=== PATIENT | male | born 1940 | race Caucasian/White ===

== ENCOUNTER 2020-10-12 11:39 | Day surgery (SDC) | payer MEDICARE ==
[~2020-10-12] VITALS: Ht 177.8 cm; Wt 66.4 kg
[2020-10-12] VITALS (16 sets, daily range): BP systolic 77–152; BP diastolic 48–80
[2020-10-12] MEDS ORDERED: NS IV 1000 ML 1,000 ML IV STA (11:40)
[2020-10-12] MEDS ORDERED: LIDOCAINE 1% INJ 20 ML 20 ML VIAL INJ ONE (11:45)
[2020-10-12] MEDS ORDERED: fentaNYL INJ 100 MCG/2 ML AMP IVP ONE (11:45)
[2020-10-12] MEDS ORDERED: MIDAZOLAM 2 MG/2 ML (VERSED) VIAL IVP ONE (11:45)
[2020-10-12 12:25] LABS: ABSOLUTE RETIC # 36 10e9/uL (24-90); BASOPHILS % (AUTO) 0 % (0-10); EOSINOPHILS # (AUTO) 0.1 10^3/uL (0.0-0.3); EOSINOPHILS % (AUTO) 3 % (0-10); HEMATOCRIT 27 % (40-54); HEMOGLOBIN 8.4 g/dL (13.3-17.7); LYMPHOCYTES # (AUTO) 2.3 10^3/uL (1.0-4.0); LYMPHOCYTES % (AUTO) 49 % (12-44); MEAN CORPUSCULAR HEMOGLOBIN 30 pg (25-34); MEAN CORPUSCULAR HGB CONC 31 g/dL (32-36); MEAN CORPUSCULAR VOLUME 96 fL (80-99); MEAN PLATELET VOLUME 9.9 fL (9.0-12.2); MONOCYTES # (AUTO) 0.3 10^3/uL (0.0-1.0); MONOCYTES % (AUTO) 7 % (0-12); NEUTROPHILS # (AUTO) 1.9 10^3/uL (1.8-7.8); NEUTROPHILS % (AUTO) 40 % (42-75); PLATELET COUNT 107 10^3/uL (130-400); RETICULOCYTE % 1.27 % (0.50-2.40); WHITE BLOOD COUNT 4.7 10^3/uL (4.3-11.0)
[2020-10-12 12:27] LABS: INR 1.1 (0.8-1.4); PROTHROMBIN TIME PATIENT 14.8 SEC (12.2-14.7)
[2020-10-12] MEDS ORDERED: preservision (12:27)
[2020-10-12] MEDS ORDERED: TIMO5DRO27 OP (12:27)
[2020-10-12] MEDS ORDERED: CALC-794 PO (12:27)
[2020-10-12] MEDS ORDERED: IBUP-2473 PO (12:27)
[2020-10-12] MEDS ORDERED: vitamin b12 (12:27)
[2020-10-12 13:38] LABS: ANISOCYTOSIS SLIGHT; BAND NEUTROPHILS 3 %; BASOPHILS % (MANUAL) 0 %; EOSINOPHILS % (MANUAL) 2 %; LYMPHOCYTES % (MANUAL) 48 %; MONOCYTES % (MANUAL) 4 %; NEUTROPHILS % (MANUAL) 43 %
[2020-10-12 13:39] LABS: ROULEAUX MOD
[2020-10-12] MEDS ORDERED: HYDROcodone/APAP 5 MG/325 MG (LORTAB) TAB PO PRN (15:00)
[2020-10-12] MEDS ORDERED: ONDANSETRON 4 MG/2 ML (SDV) Z0FRAN IVP ONE (15:15)
--- NOTE | 2020-10-12 15:31 | Pre-Op Note & Conscious Sedat ---
Pre-Operative Progress Note H&P Reviewed The H&P was reviewed, patient examined and no changes noted. Date H&P Reviewed: Oct 12, 2020 Time H&P Reviewed: 12:00 Pre-Op Diagnosis: anemia Conscious Sedation Pre-Proced Time 12:00 ASA Score 2 For ASA 3 and 4: Consider anesthesia and medical clearance. Also, for patients with a history of failed moderate sedation consider anesthesia. Airway Lungs Heart ASA score ASA 1: a normal healthy patient ASA 2: a patient with a mild systemic disease (mid diabetes, controlled hypertension, obesity ASA 3: a patient with a severe systemic disease that limits activity (angina, COPD, prior Myocardial infarction) ASA 4: a patient with an incapacitating disease that is a constant threat to life (CHF, renal failure) ASA 5: a moribund patient not expected to survive 24 hrs. (ruptured aneurysm) ASA 6: a declared brain- patient whose organs are being harvested. For emergent operations, add the letter E after the classification Mallampati Classification Grade 2 Sedation Plan Analgesia, Amnesia, Plan communicated to team members, Discussed options with patient/fam, Discussed risks with patient/fam The patient is an appropriate candidate to undergo the planned procedure, sedation, and anesthesia. The patient immediately re-assessed prior to indication. JIMMY MCNEAL MD Oct 12, 2020 15:31
--- NOTE | 2020-10-12 19:01 | Diagnostic Imaging Report ---
INDICATION: Anemia. The patient was brought to the CT suite, placed on table in the prone position. Axial imaging through the pelvis was performed to evaluate appropriate entry site. The low back was prepped and draped in the usual sterile fashion. A small amount of 1% lidocaine was utilized for local anesthesia. Bone marrow needle was advanced and placed with its tip along the posterior cortex of the right iliac bone. The needle was advanced through the cortex utilizing bone marrow drill. Bone marrow aspirates were attempted however there was a dry tap. Therefore, a bone marrow core was obtained. Core sample was somewhat short and due to absence of aspirations, the needle was repositioned and readvanced into the right iliac bone and an additional core biopsy was obtained. The procedure was performed utilizing conscious sedation with radiology nursing and constant patient monitoring. The patient was given a total of 50 mg of fentanyl intravenously and 0.5 mg of Versed intravenously. Total procedure time was approximately 30 minutes due to delay in the lab getting the 1st core sample out of the biopsy needle. IMPRESSION: Successful CT-guided bone marrow biopsy utilizing conscious sedation. Pathology results are currently pending. Dictated by: Dictated on workstation # [id number]
--- OUTSIDE RECORDS SUMMARY | 2020-10-12 22:27 | XMS REPORT | Clinical Summary ---
Author Author Admin, Brandon Bernard Organization [facility] Address Unknown Phone Unavailable Allergies, Adverse Reactions, Alerts Allergy Name Reaction Description Start Date Severity Status Pr ovider No Known Allergies Sharri Dent LPN Conditions or Problems Problem Name Problem Code Onset Date Status Entry Date Provider Comment Standard Description Annotate BMI 21-21.9 Active Susan Mathews APRN-C Body Mass Index between 19-24, adult Fatigue 780.79 Active Susan Mathews APRN-Tung Other malaise and fatigue Heat exhaustion due to salt depletion, initial encounter 992.4 Active Susan Mathews APRN-Tung Heat exhaustion du e to salt depletion Anemia 285.9 Active Josefina Amelia Anemi a, unspecified Medication List Medication Instructions Start Date Stop Date Generic Name NDC Status Provider Patient Instruction DOXYCYCLINE HYCLATE 100 MG ORAL CAPSULE 1 cap by mouth twice daily EPC[facility] waiver in place DOXYCYCLINE HYCLATE [id number] No Longer Activ e Vero Raida Active DOXYCYCLINE HYCLATE 100 MG ORAL CAPSULE 1 cap by mouth twice daily EPCS waiver in place DOXYCYCLINE HYCLATE 100 MG ORAL CAPSULE 1 [id number] DOXYCYCLINE HYCLATE Inactive Diagnostic Results Date Name Value Unit Range Description Lab Report: CBC W/DIFF, Comp. Metabolic Panel, Ferritin, Folate, Greta ... - Chemistry sodium, serum 140 mmol/L 884-659 6755/06/25 carbon dioxide, venous blood 28.8 mmol/L 21.0-32 .0 potassium, serum 4.4 mmol/L 3.5-5.2 chloride, serum 102 mmol/L 98-107 blood glucose 106 mg/dL 65-95 urea nitrogen, blood 26 mg/dL 7-18 creatinine, serum 1.55 mg/dL 0.60-1.30 Estimated Glomerular Filtration Rate (calc) 46 (?) mL/min/1.73m2 = OR > 60 mL/min alanine aminotransferase (SGPT), serum 16 U/L 12-78 aspartate aminotransferase (SGOT), serum 23 U/L 19-43 calcium, serum 9.6 mg/dL 8.5-10.1 bilirubin, serum, total 0.10 mg/dL 0.00-1.00 TSH 3.85 m[iU]/mL 0.36-3.74 thyroxine, serum, free 1.06 ng/dL 0.59-1.17 Lab Report: CBC W/DIFF, Comp. Metabolic Panel, Ferritin, Folate, Greta ... - Hematology leukocyte count, blood 5.3 10^3/MM^3 10*3/mm3 4.6-10.2 neutrophils as percent of blood leukocytes 56.7 % 42.2-75.2 monocytes as percent of blood leukocytes 9.8 % 1.7-9.3 lymphocytes as percent of blood leukocytes 27.5 % 20.5-51.1 erythrocyte (RBC) count 3.53 10^6/MM^3 10*6/mm3 4.50-6.5 0 hemoglobin, blood 10.7 g/dL 14.0-18.0 hematocrit, blood 34.3 % 40.0-54.0 mean corpuscular volume, RBC 97 fL 80-97 mean corpuscular hemoglobin, RBC 30.2 pg 27. 0-31.2 mean corpuscular hemoglobin concentration, RBC 31.1 G/DL % 31.8-35.4 red blood cell distribution width 13.8 % 11 .6-14.8 platelet count 130 10^3/MM^3 10*3/mm3 142-424 Lab Report: CBC W/DIFF, Comp. Metabolic Panel, Ferritin, Folate, Greta ... - Lab Alkaline phosphatase 91 50-136 Encounters Code Encounter Date Provider Facility CPT-44625 Level 3 Est. Patient 12:13:01 CDT [facility] Level 3 Est. Patient 12:01:[address] [facility] Procedures Code Procedure Name Date Entry Date Standard Desc ription CPT-42596 Venipuncture Draw Fee 15:05:41 CDT
--- OUTSIDE RECORDS SUMMARY | 2020-10-12 22:27 | XMS REPORT | Clinical Summary ---
Author Author Admin, Brandon Bernard Organization [employer] Address Unknown Phone Unavailable Allergies, Adverse Reactions, Alerts Allergy Name Reaction Description Start Date Severity Status Pr ovider No Known Allergies Sharri Dent LPN Conditions or Problems Problem Name Problem Code Onset Date Status Entry Date Provider Comment Standard Description Annotate BMI 21-21.9 Active Susan Mathews APRN-Tung Body Mass Index between 19-24, adult Fatigue 780.79 Active Susan BILLS Other malaise and fatigue Heat exhaustion due to salt depletion, initial encounter 992.4 Active Susan BILLS Heat exhaustion du e to salt depletion Medication List Medication Instructions Start Date Stop Date Generic Name NDC Status Provider Patient Instruction DOXYCYCLINE HYCLATE 100 MG ORAL CAPSULE 1 cap by mouth twice daily EPC[facility] waiver in place DOXYCYCLINE HYCLATE [id number] Active Troy Almanza Active Diagnostic Results Date Name Value Unit Range Description Lab Report: CBC W/DIFF, Comp. Metabolic Panel, Ferritin, Folate, Greta ... - Chemistry sodium, serum 140 mmol/L 974-325 5553/06/25 carbon dioxide, venous blood 28.8 mmol/L 21.0-32 [...] 50-136 Encounters Code Encounter Date Provider Facility CPT-52788 Level 3 Est. Patient 12:13:01 CDT [facility] Level 3 Est. Patient 12:01:43 CDT [facility] Procedures Code Procedure Name Date Entry Date Standard Desc ription CPT-09025 Venipuncture Draw Fee 15:05:41 CDT
--- OUTSIDE RECORDS SUMMARY | 2020-10-12 22:27 | XMS REPORT | Clinical Summary ---
Author Author Sebas, Brandon Bernard Organization [facility] Address Unknown Phone Unavailable Allergies, Adverse Reactions, Alerts Allergy Name Reaction Description Start Date Severity Status Pr ovider No Known Allergies Sharri Dent LPN Conditions or Problems Problem Name Problem Code Onset Date Status Entry Date Provider Comment Standard Description Annotate BMI 21-21.9 Active Susan Mathews APRN-C Body Mass Index between 19-24, adult Fatigue 780.79 Active Susan Mathews APRN-C Other malaise and fatigue Heat exhaustion due [...] daily EPC[facility] waiver in place DOXYCYCLINE HYCLATE [id number] No Longer Activ e Vero Raida Active DOXYCYCLINE HYCLATE 100 MG ORAL CAPSULE 1 cap by mouth twice daily EPCS waiver in place DOXYCYCLINE HYCLATE 100 MG ORAL CAPSULE 1 [id number] DOXYCYCLINE HYCLATE Inactive Diagnostic Results Date Name Value Unit Range Description Lab Report: CBC W/DIFF, Comp. Metabolic Panel - Chemistry sodium, serum 140 mmol/L 302-403 1679/07/20 carbon dioxide, venous blood 27.1 mmol/L 21.0-32 .0 potassium, serum 4.9 mmol/L 3.5-5.2 chloride, serum 103 mmol/L 98-107 blood glucose 96 mg/dL 65-95 urea nitrogen, blood 24 mg/dL 7-18 creatinine, serum 1.51 mg/dL 0.60-1.30 Estimated Glomerular Filtration Rate (calc) 48 (?) mL/min/1.73m2 = OR > 60 mL/min alanine aminotransferase (SGPT), serum 16 U/L 12-78 aspartate aminotransferase (SGOT), serum 26 U/L 19-43 calcium, serum 9.7 mg/dL 8.5-10.1 bilirubin, serum, total 0.30 mg/dL 0.00-1.00 Lab Report: CBC W/DIFF, Comp. Metabolic Panel - Hematology leukocyte count, blood 4.4 10^3/MM^3 10*3/mm3 4.6-10.2 neutrophils as percent of blood leukocytes 46.7 % 42.2-75.2 monocytes as percent of blood leukocytes 10.2 % 1.7-9.3 lymphocytes as percent of blood leukocytes 38.3 % 20.5-51.1 erythrocyte (RBC) count 3.10 10^6/MM^3 10*6/mm3 4.50-6.5 0 hemoglobin, blood 9.3 g/dL 14.0-18.0 hematocrit, blood 29.8 % 40.0-54.0 mean corpuscular volume, RBC 96 fL 80-97 mean corpuscular hemoglobin, RBC 29.9 pg 27. 0-31.2 mean corpuscular hemoglobin concentration, RBC 31.2 G/DL % 31.8-35.4 red blood cell distribution width 14.4 % 11 .6-14.8 platelet count 101 10^3/MM^3 10*3/mm3 142-424 Lab Report: CBC W/DIFF, Comp. Metabolic Panel - Lab Alkaline phosphatase 93 50-136 Lab Report: CBC W/DIFF, Comp. Metabolic Panel, Ferritin, Folate, Greta ... - Chemistry sodium, serum 140 mmol/L 968-417 8609/06/25 carbon dioxide, venous blood 28.8 mmol/L 21.0-32 [...] 50-136 Encounters Code Encounter Date Provider Facility CPT-81008 Level 3 Est. Patient 12:13:01 CDT Susan [facility] CPT-24205 Level 3 Est. Patient 12:01:43 CDT [facility] Procedures Code Procedure Name Date Entry Date Standard Desc ription CPT-76896 Venipuncture Draw Fee 15:05:41 CDT
--- OUTSIDE RECORDS SUMMARY | 2020-10-12 22:27 | XMS REPORT | Clinical Summary ---
Author Author Admin, Brandon Bernard Organization [employer] Address Unknown Phone Unavailable Allergies, Adverse Reactions, [...] daily EPCS waiver in place DOXYCYCLINE HYCLATE [id number] Active Troy Almanza Active Diagnostic Results Date Name Value Unit Range Description Lab Report: CBC W/DIFF, Comp. Metabolic Panel, Ferritin, Folate, Greta ... - Chemistry sodium, serum 140 mmol/L 554-771 1963/06/25 carbon dioxide, venous blood 28.8 mmol/L 21.0-32 [...] 50-136 Encounters Code Encounter Date Provider Facility CPT-25560 Level 3 Est. Patient 12:13:01 CDT [facility]-50102 Level 3 Est. Patient 12:01:43 CDT [facility] Procedures Code Procedure Name Date Entry Date Standard Desc ription CPT-67539 Venipuncture Draw Fee 15:05:41 CDT
--- OUTSIDE RECORDS SUMMARY | 2020-10-12 22:27 | XMS REPORT | Clinical Summary ---
Author Author [facility] Organization [facility] Address Unknown Phone Unavailable Care Team Providers Care Retail Presentation Specialist Name Role Phone PCP Unavailable Allergies Not on File Medications Not on file Active Problems Not on file Social History Date Tobacco Use Types Packs/Day Years Used Never Assessed Sex Assigned at Date Recorded Not on file Last Filed Vital Signs Not on file Plan of Treatment Not on file Results Not on filefrom Last 3 Months
--- OUTSIDE RECORDS SUMMARY | 2020-10-12 22:27 | XMS REPORT | Clinical Summary ---
Author Author Sebas, Brandon Bernard Organization [employer] Address Unknown Phone Unavailable Allergies, Adverse Reactions, [...] daily EPCS waiver in place DOXYCYCLINE HYCLATE [id number] No Longer Activ e Vero Raida Active DOXYCYCLINE HYCLATE 100 MG ORAL CAPSULE 1 cap by mouth twice daily EPCS waiver in place DOXYCYCLINE HYCLATE 100 MG ORAL CAPSULE 1 124552 DOXYCYCLINE HYCLATE Inactive Diagnostic Results Date Name Value Unit Range Description Lab Report: CBC W/DIFF, Comp. Metabolic Panel - Chemistry sodium, serum 140 mmol/L 751-423 2413/07/20 carbon dioxide, venous blood 27.1 mmol/L 21.0-32 [...] ... - Chemistry sodium, serum 140 mmol/L 191-447 9955/06/25 carbon dioxide, venous blood 28.8 mmol/L 21.0-32 [...] 50-136 Encounters Code Encounter Date Provider Facility CPT-06621 Level 3 Est. Patient 12:13:01 CDT Susan [facility] CPT-33150 Level 3 Est. Patient 12:01:43 CDT [facility] Procedures Code Procedure Name Date Entry Date Standard Desc ription CPT-28516 Venipuncture Draw Fee 15:05:41 CDT
--- OUTSIDE RECORDS SUMMARY | 2020-10-12 22:28 | XMS REPORT | Clinical Summary ---
Author Author Admin, Brandon Bernard Organization [facility] Address Unknown Phone Unavailable Allergies, Adverse Reactions, Alerts Allergy Name Reaction Description Start Date Severity Status Pr ovider No Known Allergies Sharri Dent LPN Conditions or Problems Problem Name Problem Code Onset Date Status Entry Date Provider Comment Standard Description Annotate BMI 21-21.9 Active Susan BILLS Body Mass Index between 19-24, adult Fatigue 780.79 Active Susan BILLS Other malaise and fatigue Heat exhaustion due to salt depletion, initial encounter 992.4 Active Susan BILLS Heat exhaustion du e to salt depletion Medication List Medication Instructions Start Date Stop Date Generic Name NDC Status Provider Patient Instruction No Drug Therapy Prescribed - none known did ask Sharri Dent LPN Vital Signs Date Name Value Unit Range Description blood pressure, diastolic 78 mm[Hg] BP frank blood pressure, systolic 148 mm[Hg] BP sys height E&M 69.5 [in_us] Bdy height pulse rate 65 /min Heart rate temperature E&M 97.8 [degF] Body temp erature weight E&M 149 [lb_av] Weight Measure d Encounters Code Encounter Date Provider Facility CPT-27570 Level 3 Est. Patient 12:13:01 CDT Susan Mathews APRNTung Gre[facility] CPT-76580 Level 3 Est. Patient 12:01:43 CDT Susan Mathesw APRNNeST GroupTung [facility]
--- OUTSIDE RECORDS SUMMARY | 2020-10-12 22:28 | XMS REPORT | Clinical Summary ---
Author Author Admin, Brandon Bernard Organization [employer] Address Unknown Phone Unavailable Allergies, Adverse Reactions, [...] daily EPCS waiver in place DOXYCYCLINE HYCLATE [id number] Active Troy Almanza Active Diagnostic Results Date Name Value Unit Range Description Lab Report: CBC W/DIFF, Comp. Metabolic Panel, Ferritin, Folate, Greta ... - Chemistry sodium, serum 140 mmol/L 957-461 4410/06/25 carbon dioxide, venous blood 28.8 mmol/L 21.0-32 [...] 50-136 Encounters Code Encounter Date Provider Facility CPT-59441 Level 3 Est. Patient 12:13:01 CDT [facility]-18429 Level 3 Est. Patient 12:01:43 CDT [facility] Procedures Code Procedure Name Date Entry Date Standard Desc ription CPT-40615 Venipuncture Draw Fee 15:05:41 CDT
--- OUTSIDE RECORDS SUMMARY | 2020-10-12 22:28 | XMS REPORT | Clinical Summary ---
Author Author Admin, Brandon Bernard Organization [employer] Address Unknown Phone Unavailable Allergies, Adverse Reactions, [...] weight E&M 149 [lb_av] Weight Measure d Diagnostic Results Date Name Value Unit Range Description Lab Report: CBC W/DIFF, Comp. Metabolic Panel, Ferritin, Folate, Greta ... - Chemistry sodium, serum 140 mmol/L 968-439 3828/06/25 carbon dioxide, venous blood 28.8 mmol/L 21.0-32 [...] 50-136 Encounters Code Encounter Date Provider Facility CPT-58146 Level 3 Est. Patient 12:13:01 [facility]PT-26354 Level 3 Est. Patient 12:01:43 CDT [facility] Procedures Code Procedure Name Date Entry Date Standard Desc ription CPT-11193 Venipuncture Draw Fee 15:05:41 CDT
--- OUTSIDE RECORDS SUMMARY | 2020-10-12 22:28 | XMS REPORT | Clinical Summary ---
Author Author Admin, Brandon Bernard Organization [employer] Address Unknown Phone Unavailable Allergies, Adverse Reactions, [...] none known did ask Sharri Dent LPN Diagnostic Results Date Name Value Unit Range Description Lab Report: CBC W/DIFF, Comp. Metabolic Panel, Ferritin, Folate, Greta ... - Chemistry sodium, serum 140 mmol/L 468-255 4789/06/25 carbon dioxide, venous blood 28.8 mmol/L 21.0-32 [...] 50-136 Encounters Code Encounter Date Provider Facility CPT-94495 Level 3 Est. Patient 12:13:01 CDT Susan BILLS [facility] CPT-32683 Level 3 Est. [facility]:01:[facility] Code Procedure Name Date Entry Date Standard Desc ription CPT-28954 Venipuncture Draw Fee 15:05:41 CDT
--- OUTSIDE RECORDS SUMMARY | 2020-10-12 22:28 | XMS REPORT | Clinical Summary ---
Author Author Admin, Brandon Bernard Organization [employer] Address Unknown Phone Unavailable Allergies, Adverse Reactions, [...] daily EPCS waiver in place DOXYCYCLINE HYCLATE 24724225662 Active Troy Almanza Active Diagnostic Results Date Name Value Unit Range Description Lab Report: CBC W/DIFF, Comp. Metabolic Panel, Ferritin, Folate, Greta ... - Chemistry sodium, serum 140 mmol/L 013-720 0868/06/25 carbon dioxide, venous blood 28.8 mmol/L 21.0-32 [...] 50-136 Encounters Code Encounter Date Provider Facility CPT-89647 Level 3 Est. Patient 12:13:01 CDT [facility] Level 3 Est. Patient 12:01:43 CDT [facility] Procedures Code Procedure Name Date Entry Date Standard Desc ription CPT-14692 Venipuncture Draw Fee 15:05:41 CDT
--- OUTSIDE RECORDS SUMMARY | 2020-10-12 22:28 | XMS REPORT | Clinical Summary ---
Author Author Admin, Brandon Bernard Organization [employer] Address Unknown Phone Unavailable Allergies, Adverse Reactions, [...] to salt depletion, initial encounter 992.4 Active uSsan BILLS Heat exhaustion du e to salt depletion Medication List Medication Instructions Start Date Stop Date Generic Name NDC Status Provider Patient Instruction DOXYCYCLINE HYCLATE 100 MG ORAL CAPSULE 1 cap by mouth twice daily EPCS waiver in place DOXYCYCLINE HYCLATE 13361918786 Active Troy Almanza Active Diagnostic Results Date Name Value Unit Range Description Lab Report: CBC W/DIFF, Comp. Metabolic Panel, Ferritin, Folate, Greta ... - Chemistry sodium, serum 140 mmol/L 965-987 3234/06/25 carbon dioxide, venous blood 28.8 mmol/L 21.0-32 [...] 50-136 Encounters Code Encounter Date Provider Facility CPT-37960 Level 3 Est. Patient 12:13:01 CDT [facility] CPT-93511 Level 3 Est. Patient 12:01:43 CDT [facility] Procedures Code Procedure Name Date Entry Date Standard Desc ription CPT-88273 Venipuncture Draw Fee 15:05:41 CDT
--- OUTSIDE RECORDS SUMMARY | 2020-10-12 22:28 | XMS REPORT | Clinical Summary ---
Author Author Admin, Brandon Bernard Organization [employer] Address Unknown Phone Unavailable Allergies, Adverse Reactions, [...] daily EPCS waiver in place DOXYCYCLINE HYCLATE 95265852032 Active Troy Almanza Active Diagnostic Results Date Name Value Unit Range Description Lab Report: CBC W/DIFF, Comp. Metabolic Panel, Ferritin, Folate, Greta ... - Chemistry sodium, serum 140 mmol/L 029-187 6272/06/25 carbon dioxide, venous blood 28.8 mmol/L 21.0-32 [...] 50-136 Encounters Code Encounter Date Provider Facility CPT-37760 Level 3 Est. Patient 12:13:01 CD[facility] Level 3 Est. Patient 12:01:43 CDT [facility] Procedures Code Procedure Name Date Entry Date Standard Desc ription CPT-35744 Venipuncture Draw Fee 15:05:41 CDT
--- OUTSIDE RECORDS SUMMARY | 2020-10-12 22:28 | XMS REPORT | Clinical Summary ---
Author Author Admin, Brandon Bernard Organization [employer] [facility] Address Unknown Phone Unavailable Allergies, Adverse Reactions, [...] ... - Chemistry sodium, serum 140 mmol/L 405-531 4957/06/25 carbon dioxide, venous blood 28.8 mmol/L 21.0-32 [...] 50-136 Encounters Code Encounter Date Provider Facility CPT-77058 Level 3 Est. Patient 12:13:01 [facility] CPT-77983 Level 3 Est. Patient 12:01:43 CDT [facility] Procedures Code Procedure Name Date Entry Date Standard Desc ription CPT-06110 Venipuncture Draw Fee 15:05:41 CDT
--- OUTSIDE RECORDS SUMMARY | 2020-10-12 22:28 | XMS REPORT | Clinical Summary ---
Author Author Admin, Brandon Bernard Organization [employer] Address Unknown Phone Unavailable Allergies, Adverse Reactions, [...] ... - Chemistry sodium, serum 140 mmol/L 864-565 6179/06/25 carbon dioxide, venous blood 28.8 mmol/L 21.0-32 [...] 50-136 Encounters Code Encounter Date Provider Facility CPT-31373 Level 3 Est. Patient 12:13:01 [facility] CPT-14022 Level 3 Est. Patient 12:01:43 CDT [facility] Procedures Code Procedure Name Date Entry Date Standard Desc ription CPT-69500 Venipuncture Draw Fee 15:05:41 CDT
--- OUTSIDE RECORDS SUMMARY | 2020-10-12 22:28 | XMS REPORT | Clinical Summary ---
Author Author Admin, Brandon eBrnard Organization [employer] [facility] Address Unknown Phone Unavailable Allergies, Adverse Reactions, [...] d Encounters Code Encounter Date Provider Facility CPT-26351 Level 3 Est. Patient 12:13:01 CDT Susan Mathews APRNTung Greta [facility] CPT-99720 Level 3 Est. Patient 12:01:43 CDT Susan Mathews APRNGroove ClubTung Greta [facility]
--- OUTSIDE RECORDS SUMMARY | 2020-10-12 22:28 | XMS REPORT | Clinical Summary ---
Author Author Admin, Brandon Bernard Organization [employer] [facility] Address Unknown Phone Unavailable Allergies, Adverse Reactions, [...] ... - Chemistry sodium, serum 140 mmol/L 637-384 4255/06/25 carbon dioxide, venous blood 28.8 mmol/L 21.0-32 [...] 50-136 Encounters Code Encounter Date Provider Facility CPT-20732 Level 3 Est. Patient 12:13:01 [facility] CPT-12740 Level 3 Est. Patient 12:01:43 CDT [facility] Procedures Code Procedure Name Date Entry Date Standard Desc ription CPT-41235 Venipuncture Draw Fee 15:05:41 CDT
--- OUTSIDE RECORDS SUMMARY | 2020-10-12 22:28 | XMS REPORT | Clinical Summary ---
Author Author Admin, Brandon Bernard Organization [employer] Address Unknown Phone Unavailable Allergies, Adverse Reactions, [...] daily EPCS waiver in place DOXYCYCLINE HYCLATE 99111658552 Active Troy Almanza Active Diagnostic Results Date Name Value Unit Range Description Lab Report: CBC W/DIFF, Comp. Metabolic Panel, Ferritin, Folate, Greta ... - Chemistry sodium, serum 140 mmol/L 576-122 4488/06/25 carbon dioxide, venous blood 28.8 mmol/L 21.0-32 [...] 50-136 Encounters Code Encounter Date Provider Facility CPT-13514 Level 3 Est. Patient 12:13:01 CD[facility] CPT-96106 Level 3 Est. Patient 12:01:43 CDT [facility] Procedures Code Procedure Name Date Entry Date Standard Desc ription CPT-03960 Venipuncture Draw Fee 15:05:41 CDT
--- OUTSIDE RECORDS SUMMARY | 2020-10-12 22:28 | XMS REPORT | Clinical Summary ---
Author Author Admin, Brandon Bernard Organization [employer] Address Unknown Phone Unavailable Allergies, Adverse Reactions, [...] daily [employer] waiver in place DOXYCYCLINE HYCLATE [id number] Active Troy Almanza Active Diagnostic Results Date Name Value Unit Range Description Lab Report: CBC W/DIFF, Comp. Metabolic Panel, Ferritin, Folate, Greta ... - Chemistry sodium, serum 140 mmol/L [phone]/06/25 carbon dioxide, venous blood 28.8 mmol/L 21.0-32 [...] 50-136 Encounters Code Encounter Date Provider Facility CPT-71637 Level 3 Est. Patient 12:13:01 CD[facility] Level [facility] Est. Patient 12:01:43 CDT [facility] Procedures Code Procedure Name Date Entry Date Standard Desc ription CPT-98041 Venipuncture Draw Fee 15:05:41 CDT
--- OUTSIDE RECORDS SUMMARY | 2020-10-12 22:28 | XMS REPORT | Clinical Summary ---
Author Author Admin, Brandon Bernard Organization [employer] Address Unknown Phone Unavailable Allergies, Adverse Reactions, [...] ... - Chemistry sodium, serum 140 mmol/L [phone]/06/25 carbon dioxide, venous blood 28.8 mmol/L [...] 50-136 Encounters Code Encounter Date Provider Facility CPT-92797 Level 3 Est. [facility]:13[facility] Level 3 Est. Patient 12:01:43 CDT [facility] Procedures Code Procedure Name Date Entry Date Standard Desc ription CPT-39593 Venipuncture Draw Fee 15:05:41 CDT
--- OUTSIDE RECORDS SUMMARY | 2020-10-12 22:28 | XMS REPORT | Clinical Summary ---
Author Author Admin, Brandon Bernard Organization [employer] Address Unknown Phone Unavailable Allergies, Adverse Reactions, Alerts Allergy Name Reaction Description Start Date Severity Status Pr ovider No Known Allergies Shrari Dent LPN Conditions or Problems Problem Name [...] ... - Chemistry sodium, serum 140 mmol/L [phone]/06/25 carbon dioxide, venous blood 28.8 mmol/L 21.0-32 [...] 50-136 Encounters Code Encounter Date Provider Facility CPT-71449 Level 3 Est. [facility]:13[facility] Level 3 Est. Patient 12:01:43 CDT [facility] Procedures Code Procedure Name Date Entry Date Standard Desc ription CPT-86807 Venipuncture Draw Fee 15:05:41 CDT
--- OUTSIDE RECORDS SUMMARY | 2020-10-12 22:28 | XMS REPORT | Clinical Summary ---
Author Author Admin, Brandon Bernard Organization [employer] Address Unknown Phone Unavailable Allergies, Adverse Reactions, [...] d Encounters Code Encounter Date Provider Facility CPT-00822 Level 3 Est. Patient 12:13:01 CDT [facility] CPT-17484 Level 3 Est. Patient 12:01:43 CDT [facility] Procedures Code Procedure Name Date Entry Date Standard Desc ription CPT-13931 Venipuncture Draw Fee 15:05:41 CDT
--- OUTSIDE RECORDS SUMMARY | 2020-10-12 22:28 | XMS REPORT | Clinical Summary ---
Author Author Admin, Brandon Bernard Organization [employer] Address Unknown Phone Unavailable Allergies, Adverse Reactions, [...] daily [employer] waiver in place DOXYCYCLINE HYCLATE [id number] Active Troy Almanza Active Diagnostic Results Date Name Value Unit Range Description Lab Report: CBC W/DIFF, Comp. Metabolic Panel, Ferritin, Folate, Greta ... - Chemistry sodium, serum 140 mmol/L [phone]/06/25 carbon dioxide, venous blood 28.8 mmol/L 21.0-32 [...] 50-136 Encounters Code Encounter Date Provider Facility CPT-96509 Level 3 Est. Patient 12:13:01 CD[facility]162 Level 3 Est. Patient 12:01:43 CDT [facility] Procedures Code Procedure Name Date Entry Date Standard Desc ription CPT-62424 Venipuncture Draw Fee 15:05:41 CDT
== END 2020-10-12 16:45 | disposition home or self-care (01) ==
LOC: RAD 11:39 → SDC 14:38 → RAD 16:45
PROVIDERS: ATTEND Internal Medicine Hematology & Oncology
DX: D64.9 Anemia, unspecified (principal)
CPT/HCPCS: 36415; 38222; 77012; 85007; 85027; 85045; 85055; 85097; 85610; 85730; 88184; 88185; 88237; 88264; 88305; 88311; 88313; 88341; 88342; 99156; 99157